=== PATIENT | male | born 1985 | race African-American/Black ===

== ENCOUNTER 2022-10-09 15:29 | Emergency (ER) | payer SELFPAY ==
[2022-10-09] MEDS ORDERED: predniSONE 20 MG TAB ONE (17:34)
== END 2022-10-09 17:36 | disposition home or self-care (01) ==
LOC: MADERS 15:29
DX: M54.50 Low back pain, unspecified (principal); F17.210 Nicotine dependence, cigarettes, uncomplicated
CPT/HCPCS: 99283; J7512

== ENCOUNTER 2022-11-03 17:50 | Emergency (ER) | payer SELFPAY ==
[2022-11-03] MEDS ORDERED: Naproxen 500 MG TAB ONE (18:39)
== END 2022-11-03 18:45 | disposition home or self-care (01) ==
LOC: MADERS 17:50
DX: M54.50 Low back pain, unspecified (principal); G89.29 Other chronic pain; I10 Essential (primary) hypertension; F20.9 Schizophrenia, unspecified; F17.210 Nicotine dependence, cigarettes, uncomplicated
CPT/HCPCS: 99283

== ENCOUNTER 2022-12-23 16:59 | Emergency (ER) | payer OTHER ==
[2022-12-23] MEDS ORDERED: Acetaminophen 500 MG TAB ONE ×2 (17:31→17:33)
== END 2022-12-23 17:50 | disposition home or self-care (01) ==
LOC: MADERS 16:59
DX: K14.6 Glossodynia (principal); F17.210 Nicotine dependence, cigarettes, uncomplicated; Z79.899 Other long term (current) drug therapy
CPT/HCPCS: 99283

== ENCOUNTER 2023-01-09 13:21 | Emergency (ER) | payer OTHER ==
[2023-01-09] MEDS ORDERED: Ibuprofen 600 MG TAB ONE (15:16)
[2023-01-09] MEDS ORDERED: Lidocaine Viscous Sol 2% 15 ml UD Cup ONE (15:29)
[2023-01-09] MEDS ORDERED: Mag-Al Plus 1200 MG/1200 MG/120 MG/30 ML UDCUP ONE (15:29)
== END 2023-01-09 15:36 | disposition home or self-care (01) ==
LOC: MADERS 13:21
DX: J02.9 Acute pharyngitis, unspecified (principal); I10 Essential (primary) hypertension; F17.210 Nicotine dependence, cigarettes, uncomplicated
CPT/HCPCS: 87081; 87430; 99283

== ENCOUNTER 2023-01-11 01:27 | Emergency (ER) | payer OTHER ==
[2023-01-11] MEDS ORDERED: Naproxen 500 MG TAB ONE (03:12)
== END 2023-01-11 02:20 | disposition home or self-care (01) ==
LOC: MADERS 01:27
DX: G89.29 Other chronic pain (principal); M54.50 Low back pain, unspecified; K14.6 Glossodynia; I10 Essential (primary) hypertension; F17.210 Nicotine dependence, cigarettes, uncomplicated
CPT/HCPCS: 99283

== ENCOUNTER 2023-02-25 05:47 | Emergency (ER) | payer OTHER ==
[2023-02-25] MEDS ORDERED: Naproxen 500 MG TAB ONE (06:33)
== END 2023-02-25 06:40 | disposition home or self-care (01) ==
LOC: MADERS 05:47
DX: M54.9 Dorsalgia, unspecified (principal); G89.29 Other chronic pain; Z76.0 Encounter for issue of repeat prescription; I10 Essential (primary) hypertension; F17.210 Nicotine dependence, cigarettes, uncomplicated
CPT/HCPCS: 94760; 99283

== ENCOUNTER 2023-12-23 15:47 | Emergency (ER) | payer OTHER ==
[2023-12-23] MEDS ORDERED: Bacitracin 1 PK ONE (16:15)
[2023-12-23] MEDS ORDERED: Boostrix 0.5 ML (Tdap) VIAL (>/=7 yrs of age) ONE (16:15)
[2023-12-23] MEDS ORDERED: Acetaminophen 500 MG TAB ONE (16:18)
== END 2023-12-23 16:40 | disposition home or self-care (01) ==
LOC: MADERS 15:47
DX: S50.02XA Contusion of left elbow, initial encounter (principal); I10 Essential (primary) hypertension; F17.210 Nicotine dependence, cigarettes, uncomplicated; Y04.8XXA Assault by other bodily force, initial encounter
CPT/HCPCS: 90471; 90715

== ENCOUNTER 2024-07-05 03:07 | Emergency (ER) | payer OTHER ==
[2024-07-05] MEDS ORDERED: Acetaminophen 500 MG TAB ONE (03:16)
[2024-07-05] MEDS ORDERED: Ibuprofen 800 MG TAB ONE (03:16)
== END 2024-07-05 04:08 | disposition home or self-care (01) ==
LOC: MADERS 03:07
DX: S46.011A Strain of muscle(s) and tendon(s) of the rotator cuff of right shoulder, initial encounter (principal); S53.401A Unspecified sprain of right elbow, initial encounter; I10 Essential (primary) hypertension; F17.210 Nicotine dependence, cigarettes, uncomplicated; Y04.8XXA Assault by other bodily force, initial encounter

== ENCOUNTER 2024-08-20 02:32 | Emergency (ER) | payer OTHER | END 2024-08-20 03:41 | LOC: MADERS 02:32 | DX: F20.9 Schizophrenia, unspecified (principal); F22 Delusional disorders; I10 Essential (primary) hypertension; F17.210 Nicotine dependence, cigarettes, uncomplicated | CPT/HCPCS: 99284 ==

== ENCOUNTER 2024-09-11 01:42 | Emergency (ER) | payer OTHER ==
[2024-09-13 05:35] LABS: Campy jejuni + coli by PCR Negative (Negative); STEC Shiga Toxin 1+2 POSITIVE (Negative); Salmonella spp. by PCR Negative (Negative); Shigella spp + EIEC by PCR Negative (Negative)
== END 2024-09-11 02:25 | disposition home or self-care (01) ==
LOC: MADERS 01:42
DX: R09.A9 Foreign body sensation, other site (principal); F17.210 Nicotine dependence, cigarettes, uncomplicated; I10 Essential (primary) hypertension
CPT/HCPCS: 87328; 87329; 87505; 99284

== ENCOUNTER 2024-09-11 13:22 | Emergency (ER) | payer OTHER ==
[2024-09-11] MEDS ORDERED: Acetaminophen 325 MG TAB ONE (14:13)
[2024-09-11] MEDS ORDERED: risperiDONE 1 MG TAB PO SCH (14:30)
== END 2024-09-11 14:51 | disposition home or self-care (01) ==
LOC: MADERS 13:22
DX: F22 Delusional disorders (principal); K62.89 Other specified diseases of anus and rectum; F17.210 Nicotine dependence, cigarettes, uncomplicated; I10 Essential (primary) hypertension
CPT/HCPCS: 99284

== ENCOUNTER 2024-09-21 14:08 | Emergency (ER) | payer OTHER ==
[2024-09-21] MEDS ORDERED: Famotidine/PF 20 mg/2ml Vial ONE (15:17)
[2024-09-21] MEDS ORDERED: Ketorolac Tromethamine 30 MG (1 mL) VIAL ONE (15:17)
[2024-09-21] MEDS ORDERED: Ondansetron PF 4 MG/2 ML Vial ONE (15:17)
[2024-09-21] MEDS ORDERED: Dicyclomine 20 MG/2 ML VIAL ONE (15:17)
[2024-09-21 15:27] LABS: Anion Gap 16 mmol/L (10-20); BUN (Urea Nitrogen) 11 mg/dL (8.9-20.6); Calc. Creatinine Clearance 0 mL/min (70-130); Calcium 9.1 mg/dL (7.8-10.44); Carbon Dioxide 24 mmol/L (22-29); Chloride 107 mmol/L (98-107); Estimated GFR 115; Glucose 91 mg/dL (70-105); Lipase 22 U/L (8-78); Potassium 3.7 mmol/L (3.5-5.1); Sodium 143 mmol/L (136-145)
[2024-09-21 15:37] LABS: #Basophils 0.1 thou/uL (0.0-0.2); #Eosinophils 0.1 thou/uL (0.0-0.7); #Lymphocytes 1.4 thou/uL (1.20-3.40); #Monocytes 0.4 thou/uL (0.11-0.59); %Basophils 1.3 % (0.0-1.0); %Eosinophils 1.3 % (0.0-10.0); %Lymphocytes 19.9 % (21.0-51.0); %Monocytes 6.2 % (0.0-10.0); %Neutrophils 71.2 % (42.0-75.0); Anisocytosis SLIGHT = 6-15 cells (100X) (0-5/hpf); Hematocrit 42.1 % (42.0-52.0); Hemoglobin 12.7 g/dL (14.0-18.0); Hypochromia SLIGHT = 6-15 cells (100X) (0-5/hpf); MDiff Complete? YES; Mean Corpuscular HGB CONC 30.1 g/dL (32.0-36.0); Mean Corpuscular Volume 82.9 fl (78.0-98.0); Mean Platelet Volume 6.5 fL (7.4-10.4); Platelet Adequacy Comment Appears Adequate; Platelet Count 301 10x3/uL (130-400); RBC Distribution Width 16.9 % (11.5-14.5); Red Blood Cell (RBC) Count 5.08 mill/uL (4.70-6.10); White Blood Cell (WBC) Count 7.1 10x3/uL (4.8-10.8)
== END 2024-09-21 22:19 | disposition short-term general hospital (02) ==
LOC: MADERS 14:08
DX: K56.1 Intussusception (principal); I10 Essential (primary) hypertension; F17.210 Nicotine dependence, cigarettes, uncomplicated
CPT/HCPCS: 74176; 80048; 83605; 83690; 85025; 96372; 96374; 96375; J1885; J2405; J3490

== ENCOUNTER 2024-10-18 09:51 | Emergency (ER) | payer OTHER | END 2024-10-18 10:20 | disposition left against medical advice (07) | LOC: MADERS 09:51 | DX: R10.9 Unspecified abdominal pain (principal); F17.210 Nicotine dependence, cigarettes, uncomplicated; I10 Essential (primary) hypertension | CPT/HCPCS: 99284 ==